=== PATIENT | male | born 1970 | race Two or more races ===

== ENCOUNTER 2017-02-08 06:27 | Emergency (ER) | payer BC, MEDICAID ==
[~2017-02-08] VITALS: Ht 175.3 cm; Wt 59.0 kg
[2017-02-08 06:27] VITALS: BP 107/66
[~2017-02-08 06:27] MED LIST: ACETAMINOPHEN325 M1 ORAL; DIPHENHYDRAMINE25 M1 GT; DOCUSATE SODIU250 MG GT; IBUPROFEN600 MG GT; LANTUS SOL100 UNIT/1 SUBQ; LEVETIRACETAM500 MG GT; LOVENOX10 M4 SUBQ; METOPROLOL TART50 MG GT; OMEPRAZOLE20 M2 GT; ONDANSETRON HCL4 M1 GT; SENNA8.6 M2 GT; VITAMIN C500 M3 GT; ZINC SULFATE220 M2 GT
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
[2017-02-08] MEDS ORDERED: Bacitracin Oint UD TOPIC ONE (06:45)
[2017-02-08] MEDS ORDERED: TdaP Vaccine 0.5ml Syr IM ONE (06:45)
[2017-02-08] MEDS ORDERED: Lidocaine 1% 10mg/ml/Epi 0.005mg/ml 30ml vial INJ ONE (06:45)
[2017-02-08] MEDS ORDERED: BACITRACIN15 GM TOPIC (07:28)
[2017-02-08 07:35] VITALS: BP 101/56
--- NOTE | 2017-02-08 08:47 | Diagnostic Imaging Report ---
Indications: Fall, neck trauma and pain Technique: Continuous helical CT imaging of the cervical spine performed with automatic exposure was on a Siemens sensation [address] scanner. Axial, coronal and sagittal images reconstructed at 3 mm slice thicknesses. CTDI volume(s): 18 mGy Total DLP: 365 mGy-cm Findings: Comparison: None. Lordotic curvature is preserved.Vertebral alignment is intact. No fracture, facet subluxation or dislocation, prevertebral soft tissue swelling, or other acute changes are demonstrated. The C3-4 through C6-7 intervertebral discs demonstrate diameters available/protrusion with marginal osteophyte formation. This results in at least moderate spinal canal narrowing with apparent cord compression at C4-5, lesser spinal stenosis at C3-4, C5-6, and C6. Chronic appearing deformities left first and second ribs, left clavicle. Tracheostomy tube in place.. IMPRESSION: No evidence of acute cervical injury. Degenerative spondylosis with apparent multilevel spinal stenosis, possible cord compression at C4-5. Chronic deformities left first and second ribs, left clavicle likely posttraumatic Tracheostomy tube The CT scanner at [facility] is accredited by the [employer] and the scans are performed using protocols designed to limit radiation exposure to as low as reasonably achievable to attain images of sufficient resolution adequate for diagnostic evaluation.
[2017-02-08 09:37] VITALS: BP 113/75
[2017-02-08 10:53] VITALS: BP 101/63
--- NOTE | 2017-02-08 13:35 | Diagnostic Imaging Report ---
Indications: Fall, head trauma and pain Technique: Continuous helical CT imaging of the brain was performed with nonionic exposure control on a Siemens sensation [address] scanner. Axial and coronal images were reconstructed at 5 mm slice thickness and interval. CTDI volume(s): 70 mGy Total DLP: 1459 mGy-cm Findings: Comparison: None Confluent low attenuation is present in the bilateral periventricular white matter. Subcentimeter nodular calcification right frontal periventricular white matter. Ventricles, cisterns, and sulci are diffusely prominent. No evidence of mass or hemorrhage, mass effect, midline shift, hydrocephalus, or increased intracranial pressure. Bone window images are unremarkable. Visualized paranasal sinuses and mastoid air cells are clear. IMPRESSION: No evidence of acute injury or other acute intracranial pathology Right frontal parenchymal calcification--consider old neurocysticercosis. Chronic age-related changes as described, prominent for age. The CT scanner at [facility] is accredited by the [employer] and the scans are performed using protocols designed to limit radiation exposure to as low as reasonably achievable to attain images of sufficient resolution adequate for diagnostic evaluation.
== END 2017-02-08 11:02 ==
LOC: EDBD 06:27 → EMR 07:36
DX: S01.81XA Laceration without foreign body of other part of head, initial encounter (principal); Z23 Encounter for immunization; S01.112A Laceration without foreign body of left eyelid and periocular area, initial encounter; S01.21XA Laceration without foreign body of nose, initial encounter; Z93.0 Tracheostomy status; M47.892 Other spondylosis, cervical region; I10 Essential (primary) hypertension; J44.9 Chronic obstructive pulmonary disease, unspecified; E11.9 Type 2 diabetes mellitus without complications; K21.9 Gastro-esophageal reflux disease without esophagitis; G40.909 Epilepsy, unspecified, not intractable, without status epilepticus; Z86.73 Personal history of transient ischemic attack (TIA), and cerebral infarction without residual deficits; W06.XXXA Fall from bed, initial encounter; Y93.9 Activity, unspecified; Y92.009 Unspecified place in unspecified non-institutional (private) residence as the place of occurrence of the external cause
CPT/HCPCS: 70450; 72125; 90471; 90715